=== PATIENT | female | born 1945 | race Hispanic/Latino ===

== ENCOUNTER 2025-01-30 21:25 | Emergency (ER) | payer OTHER, MEDICARE ==
[~2025-01-30] VITALS: Ht 144.8 cm; Wt 49.9 kg
[2025-01-30 21:33] VITALS: TEMP 97.6
--- NOTE | 2025-01-30 22:02 | ERN ---
General Chief Complaint: Chest Pain Stated Complaint: CHEST PAIN Time Seen by MD: 21:35 Source: patient, family History of Present Illness Initial Comments Patient is a 79-year-old female with a history of small cell cancer of the lung as well as a "heart aneurysm and a brain aneurysm". She states that she has had a heart attack in the past but never experienced chest pain during that incident. She comes in with left-sided chest pain that is new and incapacitating. Physical exam elicited the same chest pain with palpation. Deep breaths also cause the same pain. Timing/Duration: 4-6 hours Allergies: Coded Allergies: No Known Drug Allergies (Unverified Allergy, Unknown, 01/30/25) Past Medical History Past Medical History: Cancer Medical History Other: Small cell cancer of the lung, heart and brain aneurysms Past Surgical History: Appendectomy, Hysterectomy, Tonsillectomy, C holecystectomy, Other Surgical History Other: ROTATOR CUFF SURGERY Family History Family History: CAD Constitutional: (+) chills; (-) diaphoresis, (-) fever, (-) malaise, (-) weakness, (-) other documentation EENTM: (-) eye pain, (-) blurred vision, (-) tearing, (-) double vision, (-) ear pain, (-) ear discharge, (-) nose pain, (-) nose congestion, (-) throat pain, (-) Throat swelling, (-) mouth pain, (-) tooth pain, (-) mouth swelling, (-) other documentation Respiratory: (-) cough, (-) orthopnea, (-) short of breath, (-) stridor, (-) wheezing, (-) other documentation Cardiovascular: (+) chest pain Gastrointestinal/Abdominal: (-) nausea, (-) vomiting, (-) diarrhea, (-) abdominal pain, (-) abdominal distention, (-) constipation, (-) rectal bleeding, (-) dark stool/melena, (-) other documentation Musculoskeletal: (-) Neck pain, (-) back pain, (-) Flank Pain, (-) joint pain, (-) joint swelling, (-) muscle pain, (-) muscle stiffness, (-) gout, (-) other documentation Neuro: (-) altered mental status, (-) headache, (-) syncope, (-) paralysis, (-) numbness, (-) seizure, (-) pre-existing deficit, (-) tremors, (-) weakness, (-) dizziness, (-) slurred speech, (-) vertigo, (-) other documentation Physical Exam General Appearance: (+) mild distress Orientation: (+) oriented x 3 Head/Face Trauma: No Eye: bilateral eye normal inspection, bilateral eye PERRL, bilateral eye EOMI Ear, Nose, Throat: (+) hearing grossly normal, (+) normal ENT inspection, (+) moist mucous membraine Neck: (+) normal inspection, (+) supple, (+) no JVD Respiratory: (+) lungs clear, (+) well ventilated Respiratory Comment Severe chest pain with inspiration, left chest wall tenderness. Heart: (+) regular, (+) no gallop Vascular: (+) no edema, (+) normal peripheral pulse, (+) no JVD Gastrointestinal: (+) soft, (+) non-tender, (+) no organomegaly, (+) bowel sound present Results Laboratory and Microbiology Lab and Micro Result Laboratory Tests Test 01/30/25 22:12 01/30/25 23:15 White Blood Count 6.6 K/uL (4.8-10.8) Red Blood Count 3.12 MIL/uL (4.00-5.50) L Hemoglobin 9.6 g/dL (12.0-16.0) L Hematocrit 30.2 % (36-48) L Mean Corpuscular Volume 96.8 fL (79-99) Mean Corpuscular Hemoglobin 30.8 pg (27.0-33.0) Mean Corpuscular Hemoglobin Concent 31.8 g/dL (32.0-36.0) L Red Cell Distribution Width 13.6 % (11.0-15.5) Platelet Count 68 K/uL (130-400) L Mean Platelet Volume 11.3 fL (7.5-10.5) H Immature Granulocyte % (Auto) 0.3 % (0-1) Neutrophils (%) (Auto) 59.4 % (40.0-77.0) Lymphocytes (%) (Auto) 20.1 % (21.0-51.0) L Monocytes (%) (Auto) 7.2 % (3.0-13.0) Eosinophils (%) (Auto) 12.5 % (0.0-8.0) H Basophils (%) (Auto) 0.5 % (0.0-5.0) Neutrophils # (Auto) 3.9 K/uL (1.8-7.7) Lymphocytes # (Auto) 1.3 K/uL (1.0-4.8) Monocytes # (Auto) 0.5 K/uL (0.1-1.0) Eosinophils # (Auto) 0.82 K/uL (0.00-0.70) H Basophils # (Auto) 0.03 K/uL (0.00-0.20) Absolute Immature Granulocyte (auto 0.02 K/uL (0-1) Nucleated Red Blood Cells 0.0 % (0.0-0.19) Platelet Morphology Comment See comments Erythrocyte Sedimentation Rate 44 MM/HR (0-30) H Sodium Level 137 mmol/L (136-145) Potassium Level 4.5 mmol/L (3.5-5.1) Chloride Level 107 mmol/L (101-111) Carbon Dioxide Level 22 mmol/L (21-32) Blood Urea Nitrogen 37 mg/dL (7-18) H Creatinine 2.5 mg/dL (0.5-1.0) H Glomerular Filtration Rate Calc 19 mL/min (>90) Random Glucose 95 mg/dL (70-105) Total Calcium 8.1 mg/dL (8.5-10.1) L Phosphorus Level 4.2 mg/dL (2.5-4.9) Magnesium Level 2.00 mg/dL (1.80-2.40) Total Bilirubin 0.4 mg/dL (0.2-1.0) Aspartate Amino Transf (AST/SGOT) 25 U/L (10-37) Alanine Aminotransferase (ALT/SGPT) 20 U/L (12-78) Alkaline Phosphatase 185 U/L (50-136) H Troponin I High Sensitivity 18 ng/L (4-50) Total Protein 7.4 g/dL (6.0-8.3) Albumin 2.8 g/dL (3.5-5.0) L Urine Color LIGHT-YELLOW (YELLOW) Urine Appearance CLEAR (CLEAR) Urine pH 6.0 (5.0-8.0) Urine Specific [place] 1.009 (1.001-1.031) Urine Protein 20 mg/dL (NEGATIVE) H Urine Glucose (UA) NEGATIVE mg/dL (NEGATIVE) Urine Ketones NEGATIVE mg/dL (NEGATIVE) Urine Occult Blood +- (TRACE) (NEGATIVE) H Urine Nitrate 2+ (NEGATIVE) H Urine Bilirubin NEGATIVE mg/dL (NEGATIVE) Urine Urobilinogen 0.2 mg/dL (0.2-1.0) Urine Leukocyte Esterase 500 Abisai/uL (NEGATIVE) H Urine RBC 2-5 /HPF (0-1) H Urine WBC 51-100 /HPF (0-1) H Urine Bacteria MOD /HPF (None Seen) Urine Yeast RARE /HPF (None Seen) Labs Reviewed?: Yes EKG/XRAY/US/CT/MRI EKG: (+) NSR EKG Comment no STEMI MDM Left chest wall pain, sudden onset, history of a cardiac aneurysm. EKGs in the ambulance showed single sq ST elevations in a variety of leads. We will do the standard cardiac workup including a chest x-ray troponins BNP is chemistry panels CBC. I will also get a CT of her chest and an ESR. We will do a repeat EKG here. I have to consider the small cell carcinoma eating into her bones as the cause of her chest wall tenderness. CT scan of patient's chest showed no excess fluid no obvious rib fractures although there were lot of arthritic changes. Patient's CBC was normal patient's chemistry panel was normal patient's UA showed she has a urinary tract infection. I will bolused her a g of Ancef and discharge her on a seven day course of Ancef as well ED Course Orders Procedure Category Date Status Time Cbc With Differential LAB 01/30/25 Complete 21:59 Comprehensive LAB 01/30/25 Complete Metabolic Panel 21:59 Magnesium LAB 01/30/25 Complete 21:59 Phosphorus LAB 01/30/25 Complete 21:59 Troponin I High LAB 01/30/25 Complete Sensitivity 21:59 Erythrocyte LAB 01/30/25 Complete Sedimentation Rate 21:59 Chest 1vw RAD 01/30/25 Taken 21:59 Ct Chest W/O Contrast CT 01/30/25 Taken 23:05 Urinalysis Profile LAB 01/30/25 Complete 23:17 Culture Urine ANDREW 01/30/25 In Process 23:27 Cefazolin Sodium 1 Gm PHA 01/31/25 Transmitted Vial (Ancef 1 Gm V 00:00 Vital Signs Date Time Temp Pulse Resp B/P (MAP) Pulse Ox O2 Delivery O2 Flow Rate FiO2 01/30/25 23:48 73 19 153/68 99 Room Air* 0 21 01/30/25 21:33 97.5 78 20 163/87 98 Room Air* 0 21 01/30/25 21:29 97.5 75 20 163/87 98 Room Air 0 DX & DISP Disposition: Discharge Departure Impression: Primary Impression: Chest wall pain Additional Impression: UTI (urinary tract infection) Condition: Stable Scripts Cephalexin Monohydrate (Keflex) 500 Mg Cap 500 MG PO QID for 7 Days, #28 CAP Prov: KANNAN TRAN MD 01/31/25 Additional Instructions: Please keep your infusion therapy appointment tomorrow. Referrals: SELF,REFERRAL (PCP) KANNAN TRAN MD Jan 30, 2025 22:02
[2025-01-30 22:24] LABS: BASOPHILS # (AUTO) 0.03 K/uL (0.00-0.20); BASOPHILS % (AUTO) 0.5 % (0.0-5.0); EOSINOPHILS # (AUTO) 0.82 K/uL (0.00-0.70); EOSINOPHILS % (AUTO) 12.5 % (0.0-8.0); HEMATOCRIT 30.2 % (36-48); IMMATURE GRANULOCYTE ABSOLUTE 0.02 K/uL (0-1); LYMPHOCYTES # (AUTO) 1.3 K/uL (1.0-4.8); LYMPHOCYTES % (AUTO) 20.1 % (21.0-51.0); MEAN CORPUSCULAR HEMOGLOBIN 30.8 pg (27.0-33.0); MEAN CORPUSCULAR HGB CONC 31.8 g/dL (32.0-36.0); MEAN CORPUSCULAR VOLUME 96.8 fL (79-99); MONOCYTES # (AUTO) 0.5 K/uL (0.1-1.0); MONOCYTES % (AUTO) 7.2 % (3.0-13.0); NEUTROPHILS # (AUTO) 3.9 K/uL (1.8-7.7); NEUTROPHILS % (AUTO) 59.4 % (40.0-77.0); PLATELET COUNT (AUTO) 68 K/uL (130-400); RED BLOOD CELL COUNT(AUTO) 3.12 MIL/uL (4.00-5.50); RED CELL DISTRIBUTION WIDTH 13.6 % (11.0-15.5); WHITE BLOOD COUNT (AUTO) 6.6 K/uL (4.8-10.8)
[2025-01-30 22:38] LABS: CREATININE 2.5 mg/dL (0.5-1.0); POTASSIUM 4.5 mmol/L (3.5-5.1)
[2025-01-30 22:42] LABS: ALBUMIN 2.8 g/dL (3.5-5.0); BILIRUBIN,TOTAL 0.4 mg/dL (0.2-1.0); PHOSPHORUS 4.2 mg/dL (2.5-4.9); TOTAL PROTEIN, SERUM 7.4 g/dL (6.0-8.3)
[2025-01-30 23:24] LABS: ERYTHROCYTE SEDIMENTATION RATE 44 MM/HR (0-30)
[2025-01-30 23:26] LABS: ADD UA MICROSCOPIC YES; APPEARANCE,URINE CLEAR (CLEAR); BILIRUBIN,URINE NEGATIVE (NEGATIVE); COLOR,URINE LIGHT-YELLOW (YELLOW); GLUCOSE, URINE (UA) NEGATIVE (NEGATIVE); KETONES,URINE NEGATIVE (NEGATIVE); LEUKOCYTE ESTERASE ,URINE 500 Leu/uL (NEGATIVE); NITRATE,URINE 2+ (NEGATIVE); PROTEIN,URINE 20 mg/dL (NEGATIVE); UROBILINOGEN,URINE 0.2 mg/dL (0.2-1.0)
[2025-01-30 23:30] LABS: BACTERIA,URINE MOD /HPF (None Seen); MUCUS,URINE RARE LPF (None Seen); WBC,URINE 51-100 /HPF (0-1); YEAST,URINE BUDDING RARE /HPF (None Seen)
[2025-01-31] MEDS ORDERED: CEPH500B PO (00:07)
--- NOTE | 2025-01-31 00:11 | HMCIMG ---
CT CHEST W/O CONTRAST HISTORY: Chest wall pain COMPARISON: None TECHNIQUE: Multiple sequential axial images of the chest were obtained from the thoracic inlet through upper abdomen. Patient was not given contrast through intravenous route. FINDINGS: There are bilateral interstitial fibrosis with bronchiectasis. Coronary arterial calcifications are seen. There is no evidence of pulmonary nodule or parenchymal disease. No pleural effusion or pericardial effusion is seen. There is no evidence of pneumothorax. There are normal size mediastinal and hilar lymph nodes. The heart is not enlarged. Degenerative changes of the thoracolumbar spine are present. There is no evidence of adrenal nodule. IMPRESSION: 1. No evidence of pulmonary nodule or effusion is seen. Bilateral interstitial fibrosis with bronchiectasis. CT was performed with one or more following dose reduction techniques: automated exposure control, adjustment of the mA and kv according to patient's size, or use of a iterative reconstruction technique.
[2025-01-31] MEDS: ceFAZolin SODIUM 1 GM VIAL IVP STA (00:16)
[2025-01-31 01:14] VITALS: BP 148/65; PULSE 71; RESP 19; O2SAT 98
--- NOTE | 2025-01-31 08:55 | EKG ---
[facility] Test Date: 2025-01-30 Test Time: 21:30:33 Pat Name: MICAELA QUINTANILLA Department: ED Room: Gender: F Turning Lathe Tender: [id number] : 1945 Requested By: KANNAN TRAN Order Number: [id number] Reading MD: Gavin Trejo Measurements Intervals [place] Rate: 71 P: 69 VA: 170 QRS: -15 QRSD: 80 T: 26 QT: 393 QTc: 427 Interpretive Statements Sinus rhythm No previous ECG available for comparison Electronically Signed On 02-01-2025 13:34:59 CDT by Gavin Trejo Please click the below link to view image of tracing.
--- NOTE | 2025-01-31 11:36 | HMCIMG ---
CHEST 1VW HISTORY: Chest pain COMPARISON: None FINDINGS: A frontal projection of the chest was obtained. Prominent interstitial markings are seen with possible superimposed infiltrates. The heart is borderline enlarged. Degenerative changes are seen. Early calcifications are seen. IMPRESSION: 1. Prominent interstitial markings are seen with possible superimposed infiltrates.
== END 2025-01-31 01:14 | disposition home or self-care (01) ==
LOC: EDH 21:25
DX: R07.89 Other chest pain (principal); N39.0 Urinary tract infection, site not specified; Z90.49 Acquired absence of other specified parts of digestive tract; Z90.710 Acquired absence of both cervix and uterus; Z98.890 Other specified postprocedural states
CPT/HCPCS: 99285; 71250; 71045; 83735; 84100; 84484; 80053; 85025; 85651; 87086 ×2; 87186; 81001; 36415; 93005; 96374; J0690